=== PATIENT | male | born 1980 | race Caucasian/White ===

== ENCOUNTER 2017-12-21 01:13 | Emergency (ER) | payer BC ==
[~2017-12-21] VITALS: Ht 175.3 cm; Wt 85.2 kg
[2017-12-21 01:15] VITALS: TEMP 36.7; Ht 175.3 cm; Wt 85.2 kg
[2017-12-21] MEDS ORDERED: OPTIRAY 320 IV PRN (01:45)
[2017-12-21 02:15] VITALS: BP 129/80; PULSE 71; O2SAT 98
--- NOTE | 2017-12-21 02:19 | EMERGENCY ROOM VISIT NOTE ---
History First contact with patient: 01:20 Chief Complaint: OTHER COMPLAINT Stated Complaint: LIP PAIN/BLEEDING History of Present Illness The patient is a 37 year old male who presents to the Emergency Room with complaints of recurrent growth to upper lip for the past few weeks that has been excised twice at the [place] [facility] office. Patient is unsure of the results of the path report. He comes in tonight as it has grown in size rapidly and occasionally bleeds. He is worried this might be cancer. Patient does chew tobacco. Patient denies night sweats, chest pain, dyspnea, facial swelling, dysphagia, cold symptoms, fever, chills, cough, congestion, dental pain, mouth swelling, facial swelling. Patient is concerned about the rapid growth of the mass to his lip. Review of Systems An 10 system review of systems was completed with positives and pertinent negatives listed in the HPI. Past Medical/Surgical History None Social History Smoking Status: Never Smoker Smokeless Tobacco Use: Yes Drug Use: none Marital Status: Housing Status: lives with family Occupation Status: employed Current/Historical Medications No Active Prescriptions or Reported Meds Physical Exam Vital Signs Date Time Temp Pulse Resp B/P (MAP) Pulse Ox O2 Delivery O2 Flow Rate FiO2 18 01:15 36.7 67 16 134/83 97 Room Air Physical Exam VITALS: Vitals are noted on the nurse's note and reviewed by myself. Vital signs stable. GENERAL: White male anxious appearing, in no acute distress, nondiaphoretic, well-developed well-nourished. SKIN: The skin was without rashes, erythema, edema, or bruising. There is no tenting of the skin. Capillary reflex less than 2 seconds. HEAD: Normocephalic atraumatic. EARS: External auditory canals clear, tympanic membranes pearly singleton without erythema or effusion bilaterally. EYES: Pupils equal round and reactive to light and accommodation. Conjunctivae without injection, sclerae without icterus. Extraocular movements intact. NOSE: Patent, turbinates without inflammation or discharge. No sinus tenderness. MOUTH: Mucous membranes moist. Pharynx without erythema or exudate. Uvula midline. Airway patent. Tongue does not deviate. Upper lip with growth to the lateral aspect most consistent with a pyogenic granuloma that is not currently bleeding. Dental exam: Chew in between the teeth without ulcer or abscess or signs of Mil's angina. NECK: Supple without nuchal rigidity. No lymphadenopathy. No thyromegaly. Cervical spine is nontender. No JVD. HEART: Regular rate and rhythm without murmurs gallops or rubs. LUNGS: Clear to auscultation bilaterally without wheezes, rales or rhonchi. No retractions or accessory muscle use. ABDOMEN: Positive bowel sounds x 4. Normal tympanic percussion. Soft, nontender, without masses or organomegaly. Ortiz sign negative. No guarding or rebound tenderness. No CVA tenderness MUSCULOSKELETAL: No muscle atrophy, erythema, or edema noted. NEURO: Patient was alert and oriented to person place and time. Normal sensation to light and sharp touch. No focal neurological deficits. Medical Decision & Procedures Laboratory Results ED Course Prior records reviewed and summarized as above. Triage Nursing notes reviewed. Additional history obtained from family. The patient's history was concerning for growth to lip Differential diagnosis: Etiologies such as pyogenic granuloma, hemangioma, cancer, papule, wart, infection, as well as others were entertained.. Physical examination: The physical examination was consistent with pyogenic granuloma ER treatment provided: I obtain the records from [facility] and patient's pathology report is consistent with a pyogenic granuloma. This is explained and shown to the patient. On reassessment the patient felt better. Diagnostics interpreted by me: Deferred This appears to be pyogenic granuloma of the lip. Patient was shown the path report. He felt comfortable knowing now what the mass of the lip was. He was informed that this is easily friable and regrows frequently. He was informed he should have this surgically excised by his nicker. He has an appointment this month with his nicker. He was advised to keep it. He was strongly encouraged to quit chewing tobacco as this can increase the chance of coming cancer. He was informed that pyogenic granuloma is not cancer. He felt comfortable knowing this. He was given a copy of his pathology report. Patient felt comfortable with treatment plan and did not want further testing. Patient is advised to follow-up with his family care nicker or here in the ER sooner for fevers, bleeding, pain, swelling, worsening signs or symptoms or as needed. Patient had no bleeding on exam. No palpable abscess. No masses in the mouth. Ulcerations in the mouth. By the evaluation outlined above emergent etiologies such as abscess, mass as well as others were deemed relatively unlikely. The pt informed about the findings as listed above. All questions were answered and pleased with the treatment. Return instructions were outlined and the patient was discharged in stable condition. Referral: The patient was referred back to nicker and/or primary care physician for follow-up in 2 to 3 days for a recheck of the current condition. The chart was completed utilizing [employer] Speech voice recognition software. Grammatical errors, random word insertions, pronoun errors, and incomplete sentences are an occassional consequence of this system due to software limitations, ambient noise, and hardware issues. Any formal questions or concerns about the content, text, or information contained within the body of this dictation should be directly addressed to the physician assistant plant control operator for clarification. Medical Decision As above Medication Reconcilliation Current Medication List: was personally reviewed by me Blood Pressure Screening Patient's blood pressure: Normal blood pressure Impression Primary Impression: Pyogenic granuloma of lip Departure Information Dispostion Home / Self-Care Condition GOOD Prescriptions No Active Prescriptions or Reported Meds Referrals No Doctor, Assigned (PCP) Patient Instructions [facility] Additional Instructions Pyogenic granuloma or lobular capillary hemangioma is a benign vascular tumor of the skin characterized by rapid growth and friable surface. Pyogenic granuloma occurs in patients of all ages, with a peak incidence in the second and third decades of life. PG grows rapidly over weeks to months. The lesions may be pedunculated or sessile, with a characteristic epithelial collarette at the base. The surface is friable, bleeds profusely after minor trauma, and may become ulcerated. Pyogenic granulomas are usually solitary, but multiple satellite lesions and disseminated forms also occur. Treatment is usually required for pyogenic granuloma because of frequent ulceration and bleeding. For PGs that recur after treatment with shaving or nonsurgical modalities, the current recommendation is suggested surgical excision. You need to see your nicker for further evaluation and treatment for your ongoing PG. If it rebleeds, apply pressure to stop the bleeding. Try avoid touching the area as this can cause more bleeding. Recommend that you quit chewing tobacco. Follow-up with family care in 2-3 days. Return to ER sooner for profuse bleeding, fevers, pain, worsening signs or symptoms or as needed.
== END 2017-12-21 02:16 | disposition home or self-care (01) ==
LOC: C.EDB 01:15
DX: L98.0 Pyogenic granuloma (principal); F17.220 Nicotine dependence, chewing tobacco, uncomplicated